=== PATIENT | male | born 2000 | race Caucasian/White ===

== ENCOUNTER 2020-01-31 19:12 | Emergency (ER) | payer OTHER ==
[~2020-01-31] VITALS: Ht 177.8 cm; Wt 71.4 kg
[2020-01-31 19:12] VITALS: BP 151/84
[2020-01-31] MEDS ORDERED: LIDOCAINE 1% SDV 5ML VIAL DILUENT ONE (20:15)
[2020-01-31] MEDS ORDERED: AZITHROMYCIN 250MG TABLET PO ONE (20:15)
[2020-01-31] MEDS ORDERED: cefTRIAXone SOD 250MG VIAL (J0696 PER 250MG) IM ONE (20:15)
[2020-01-31] MEDS ORDERED: DOXY100C37 PO (20:25)
[2020-01-31 22:00] LABS: CHLAMYDIA DNA AMPLIFICATION NEGATIVE (NEGATIVE); GC DNA AMPLIFICATION NEGATIVE (NEGATIVE)
== END 2020-01-31 20:40 | disposition home or self-care (01) ==
LOC: M ED 19:12
DX: R30.0 Dysuria (principal)
CPT/HCPCS: 81001; 87491; 87591; 96372; 99282; J0696

== ENCOUNTER → 2020-12-02 | Outpatient (CLI) | payer OTHER ==
[~2020-12-02] MED LIST: DOXY100C37 PO
--- NOTE | 2020-12-02 08:41 | PFTRPT ---
Height: 70.00 Inches Weight: 168.00 Lbs BSA: 1.94 Diagnosis: SOB DATE: 12/02/2020 ORDERING PHYSICIAN: MARYLU De La Rosa Pre and post bronchodilator studies have excellent technical quality. Forced vital capacity is normal. FEV1 is in proportion. Obstructive index is therefore normal. Expiratory limit of the flow-volume loop is normal. No significant bronchodilator response is identified. Total lung capacity is normal. Residual volume is in proportion. Diffusing capacity is normal. No hemoglobin available for correction. Airway resistance and conductance are normal. IMPRESSION: Normal study. MTDD
== END ==
LOC: M CARPUL 08:07
PROVIDERS: ATTEND Physician Assistant
DX: R06.02 Shortness of breath (principal)